=== PATIENT | male | born 1995 | race Caucasian/White ===

== ENCOUNTER 2022-11-09 13:15 | Outpatient (CLI) | payer OTHER, SELFPAY ==
[2022-11-09 14:30] LABS: PH Semen 9.5 (7.0-8.0); Volume Semen 2.3 mL (2-5)
[2022-11-09 14:31] LABS: Red Blood Count Semen 0-4 /hpf
[2022-11-09 14:39] LABS: Viscosity Semen High Viscosity
[2022-11-09 14:48] LABS: Sperm Non-Progressive Motility 4 % (5-10); Sperm Progressive Motility 55 % (31-34)
[2022-11-09 14:49] LABS: Sperm Immotility 41 % (50-60)
[2022-11-09 15:59] LABS: Pathology Referral Yes; Side 1 16; Side 2 17; Side WITHIN 10% 10
== END 2022-11-09 13:16 | disposition home or self-care (01) ==
PROVIDERS: Visit Provider Obstetrics & Gynecology
DX: Z31.69 Encounter for other general counseling and advice on procreation (principal)
CPT/HCPCS: 80503; 89320